=== PATIENT | male | born 1955 | race Asian ===

== ENCOUNTER 2024-07-25 01:33 | Day surgery (SDC) | payer MEDICARE, SELFPAY ==
[2024-07-17 12:53] VITALS: BMI 41.1
[2024-07-25 09:17] VITALS: BP 134/78; PULSE 83; RESP 20; TEMP 36.2; O2SAT 95
[2024-07-25] MEDS: LACTATED RINGERS 1,000 ML 150 ML IV CONT (09:28)
--- NOTE | 2024-07-25 09:47 | P.PNAN_ITS ---
Anes - Initial Pre Proc Eval Procedure: Operation Date: 07/25/24 10:30 Proposed Procedures p Screening Colonoscopy - Calvin Cain MD Date/Time: 07/25/24 09:47 Surgeon: Calvin Cain MD Pre Op Diagnosis: Neoplasm screening Patient Data Age: 68 Gender: M Height: 1.7 m Weight: 119.7 kg Last Vital Signs Temp 36.2 C L 07/25/24 09:17 Pulse 83 07/25/24 09:17 Resp 20 07/25/24 09:17 BP 134/78 07/25/24 09:17 Pulse Ox 95 07/25/24 09:17 O2 Del Method Room Air 07/25/24 09:17 Allergies Allergy/AdvReac Type Severity Reaction Status Date / Time lisinopril AdvReac Cough Verified 07/25/24 09:16 Home Medications ?Medication ?Instructions ?Recorded ?Confirmed ?Type eszopiclone 3 mg tablet 3 mg PO DAILY 07/17/24 07/25/24 History losartan 50 mg tablet 50 mg PO DAILY 07/17/24 07/25/24 History tamsulosin 0.4 mg capsule 0.4 mg PO DAILY 07/17/24 07/25/24 History Patient hx anesthesia problems: none Family hx anesthesia problems: none Results Review: All pre-operative results and documents have been reviewed as part of the pre- operative evaluation. [facility] Past Medical History Medical History (Updated 07/25/24 @ 09:47 by Deepak Ken MD) LEANN (obstructive sleep apnea) HTN (hypertension) Obesity Surgical History Surgical History (Updated 07/25/24 @ 09:47 by Deepak Ken MD) H/O colonoscopy Social History Social History Smoking status: Current every day smoker Tobacco type: cigars Alcohol intake: current Drinks per week: 8 Substance use type: does not use Living arrangements: with family Spiritual care concerns: No Anes - Eval Final PreProcedure Day of Procedure 07/25/24 09:47 Patient weight: morbidly obese Heart: regular rate and rhythm Lungs: clear to auscultation Airway: Mallampati scale class II Neurological: alert and oriented Last oral intake: >/= 8 hours ASA classification: III Emergent: no Anesthetic plan: proceed Anesthesia type and monitoring: general GIVS and standard monitoring Results Review: All pre-operative results and documents have been reviewed as part of the pre- operative evaluation. Informed Consent: The patient's anesthetic plan and its attendant risks and benefits were discussed with the patient/family/POA. Questions were solicited and answers provided to the satisfaction of the patient/family/POA.
--- NOTE | 2024-07-25 09:56 | PM.HPGS ---
History of Present Illness History of Present Illness Consent: Risks, benefits, and alternatives have been discussed and questions answered. Patient agrees to proceed with procedure. Chief complaint: Neoplasm screening Narrative: Sam Boyce is a 68 year old male here for screening colonoscopy, last one 10 years ago Review of Systems Review of Systems: All systems reviewed & are unremarkable except as noted in HPI and below PMFSH Past Medical History Medical History (Updated 07/25/24 @ 09:57 by Calvin Cain MD) Colon cancer screening LEANN (obstructive sleep apnea) HTN (hypertension) Obesity Surgical History Surgical History (Updated 07/25/24 @ 09:47 by Deepak Ken MD) H/O colonoscopy Social History Social History Smoking status: Current every day smoker Tobacco type: cigars Alcohol intake: current Drinks per week: 8 Substance use type: does not use Living arrangements: with family Spiritual care concerns: No Meds Home Medications and Allergies Home Medications ?Medication ?Instructions ?Recorded ?Confirmed ?Type eszopiclone 3 mg tablet 3 mg PO DAILY 07/17/24 07/25/24 History losartan 50 mg tablet 50 mg PO DAILY 07/17/24 07/25/24 History tamsulosin 0.4 mg capsule 0.4 mg PO DAILY 07/17/24 07/25/24 History Allergies Allergy/AdvReac Type Severity Reaction Status Date / Time lisinopril AdvReac Cough Verified 07/25/24 09:16 Vital Signs Vital Signs - 24 hr 07/25/24 09:17 Temperature 97.1 F L Pulse Rate 83 Respiratory Rate 20 Blood Pressure 134/78 Pulse Oximetry 95 Oxygen Delivery Room Air Exam Const: General: comfortable and no acute distress HENMT: Face/Nose/Sinus: Normal nares present Eyes: General: appearance normal, both eyes and all related structures Neck: Neck: no JVD Resp: Auscultation: clear to auscultation bilaterally Cardio: Rate: regular rate Rhythm: regular rhythm GI: Inspection: non-distended GI Palp: Yes Soft to palpation Skin: General skin exam: normal color Neuro: General: gait normal Speech: normal speech Extrem: General: normal to inspection Psych: Mental Status: mental status grossly normal Assessment and Plan Assessment and plan (1) Colon cancer screening: Code(s): Z12.11 - Encounter for screening for malignant neoplasm of colon Status: Acute Assessment and Plan: colonoscopy
[2024-07-25 10:12] VITALS: BP 88/64; PULSE 72; RESP 21; O2SAT 93
[2024-07-25 10:22] VITALS: BP 90/64; PULSE 77; RESP 20; O2SAT 96
[2024-07-25 10:32] VITALS: BP 105/64; PULSE 70; RESP 16; O2SAT 96
== END 2024-07-25 10:49 | disposition home or self-care (01) ==
PROVIDERS: PCP Family Medicine; Visit Provider Internal Medicine Gastroenterology
PROC: 0DJD8ZZ Inspection of Lower Intestinal Tract, Via Natural or Artificial Opening Endoscopic (ICD-10-PCS; CPT 45378; principal; 2024-07-25 10:30)
DX: Z12.11 Encounter for screening for malignant neoplasm of colon (principal); K57.30 Diverticulosis of large intestine without perforation or abscess without bleeding; I10 Essential (primary) hypertension; G47.33 Obstructive sleep apnea (adult) (pediatric); F17.210 Nicotine dependence, cigarettes, uncomplicated; E66.01 Morbid (severe) obesity due to excess calories; Z68.41 Body mass index [BMI] 40.0-44.9, adult
CPT/HCPCS: G0121; J2704; J7120